=== PATIENT | female | born 1950 | race Caucasian/White ===

== ENCOUNTER → 2016-12-18 | Outpatient (CLI) | payer MEDICARE, OTHER ==
--- NOTE | 2016-12-18 22:37 | CARD ---
APPROVED REPORT EXAM: Two-dimensional and M-mode echocardiogram with Doppler and color Doppler. Other Information Quality : Technically Limited Rhythm : NSRTechnically limited study due to body habitus and patient lying supine. INDICATION Murmur 2D DIMENSIONS RVDd2.1 (2.9-3.5cm)Left Atrium(2D)4.6 (1.6-4.0cm) IVSd1.1 (0.7-1.1cm)Aortic Root(2D)2.5 (2.0-3.7cm) LVDd4.3 (3.9-5.9cm)LVOT Diameter2.0 (1.8-2.4cm) PWd1.0 (0.7-1.1cm)LVDs2.9 (2.5-4.0cm) FS (%) 31.9 %SV50.5 ml LVEF(%)60.3 (>50%) Aortic Valve AoV Peak Sai.152.4cm/sAoV VTI27.6cm AO Peak GR.9.3mmHgLVOT Peak Sai.138.1cm/s LVOT VTI 30.29cmAO Mean GR.6mmHg GALO (VMAX)2.10ad0USZ (VTI)3.53cm2 Mitral Valve MV E Nkfsjbcg332.7cm/sMV DECEL REHX294mj MV A Cmsbylfn763.0cm/sMV E Mean Gr.4mmHg MV UGR02aiW/A Ratio0.8 MV A Pvxczaae797svMTN (PHT)5.03cm2 TDI E/Lateral E'10.0E/Medial E'12.4 Tricuspid Valve TR P. Ialxjuhp258ar/sRAP JFANSEXQ3tqRm TR Peak Gr.06zwOqQFBE60qcOy LEFT VENTRICLE The left ventricle is normal size. There is normal left ventricular wall thickness. Left ventricle sy stolic function is normal. The Ejection Fraction is 55-60%. There is normal LV segmental wall motion. Tissue Doppler imaging reveals mild left ventricular diastolic dysfunction. Transmitral Doppler flow pattern is Grade I-abnormal relaxation pattern. There is no ventricular septal defect visualized. RIGHT VENTRICLE The right ventricle is normal size. The right ventricular systolic function is normal. ATRIA The left atrium size is normal. The right atrium size is normal. The interatrial septum is intact wit h no evidence for an atrial septal defect or patent foramen ovale as noted on 2-D or Doppler imaging. AORTIC VALVE The aortic valve is not well visualized. Doppler and Color Flow revealed no significant aortic regurg itation. There is no significant aortic valvular stenosis. MITRAL VALVE Mitral annular calcification is mild. The mitral valve leaflets are thickened and calcified. There is no mitral valve stenosis. Doppler and Color Flow revealed no mitral valve regurgitation noted. TRICUSPID VALVE The tricuspid valve is not well visualized. Doppler and Color Flow revealed trace tricuspid regurgita tion. The PA pressure was estimated at 24 mmHg. There is no tricuspid valve stenosis. PULMONIC VALVE The pulmonic valve is not well visualized. Doppler and Color Flow revealed no pulmonic valvular regur gitation. There is no pulmonic valvular stenosis. GREAT VESSELS The aortic root is normal in size. Pulmonary veins not recorded. The IVC is normal in size and collap ses >50% with inspiration. PERICARDIAL EFFUSION There is no evidence of significant pericardial effusion. Critical Notification Critical Value: No <Conclusion> This was a technically very difficult study. The resultant veiws are thus not optimum The left ventricle is normal size. There is normal left ventricular wall thickness. Left ventricle systolic function is normal. The Ejection Fraction is 55-60%. Tissue Doppler imaging reveals mild left ventricular diastolic dysfunction. Transmitral Doppler flow pattern is Grade I-abnormal relaxation pattern. There is no evidence of significant pericardial effusion. There is no mitral valve stenosis. Doppler and Color Flow revealed no mitral valve regurgitation noted. The left atrium is of a normal size There is no significant aortic valvular stenosis. Doppler and Color Flow revealed no significant aortic regurgitation. The right ventricle is of a normal size with normal systolic function Doppler and Color Flow revealed trace tricuspid regurgitation. The PA pressure was estimated at 24 mmHg. The pulmonic valve is normal. No significant valvular dysfunction to account for the patient's murmur
== END | disposition home or self-care (01) ==
LOC: ECHO 09:30
PROVIDERS: ATTEND Family Medicine
DX: R01.1 Cardiac murmur, unspecified (principal)
CPT/HCPCS: 93306

== ENCOUNTER → 2018-11-08 | Outpatient (CLI) | payer MEDICARE, OTHER ==
--- NOTE | 2018-11-08 16:44 | KCIC ---
Bilateral digital screening mammograms: Reason for examination: Routine screening. Comparison is made to previous study dated 12/12/2014. Interpretation is made with the benefit of CAD. The skin and nipples show no abnormalities. No abnormal lymph nodes are seen. The breast parenchyma is predominantly fatty. (Breast density: Category A.) There are no continues to be a small nodular parenchymal densities laterally in the right breast at the 9:30 B position which is stable. There are no new dominant masses, suspicious calcifications or architectural distortions. Impression: No evidence of malignancy. Recommend routine screening. BI-RADS Category 2: Benign. "Our facility is accredited by the [employer] Mammography Program." This patient's information has been entered into a reminder system for the patient to be notified with the results of her examination and a target date for the next mammogram. Electronically signed by: Savannah Dior MD (11/08/2018 4:41 PM) [id number]
== END | disposition home or self-care (01) ==
LOC: KCIC MAMMO 13:51
PROVIDERS: ATTEND Nurse Practitioner Family
DX: Z12.31 Encounter for screening mammogram for malignant neoplasm of breast (principal)
CPT/HCPCS: 77067